=== PATIENT | female | born 1945 | race Caucasian/White ===

== ENCOUNTER 2016-07-19 10:32 | Emergency (ER) | payer OTHER, MEDICARE ==
[~2016-07-19] VITALS: Ht 157.5 cm; Wt 75.8 kg
[~2016-07-19 10:32] MED LIST: ANUSOL HC-HEMOR1 SUP RC; BACTRIM DS 8001 TAB PO; BYSTOLIC10 M1 PO; CARAFATE 1GM1000 MG PO; CIPRO500 MG PO; CRESTOR20 M2 PO; FLAG500 PO; KEFLEX500 MG PO; PERCOCET 325 MG1 TA2 PO; VICODIN5-300 PO
[2016-07-19] MEDS ORDERED: SIMVASTATIN20 M2 PO (11:25)
--- NOTE | 2016-07-19 12:17 | ED CARDIAC/CP/PALPITATIONS ---
History of Present Illness General Chief Complaint: Chest Pain Stated Complaint: ABD PAIN,SHOULDER PAIN,BACK PAIN Source: patient Exam Limitations: no limitations Vital Signs & Intake/Output Vital Signs & Intake/Output Vital Signs Date Time Temp Pulse Resp B/P Pulse O2 O2 Flow FiO2 Ox Delivery Rate 07/19 1556 98.2 110 20 169/82 95 Room Air 07/19 1320 96.6 108 20 149/73 94 Room Air 07/19 1127 96 Room Air 07/19 1039 98.6 118 18 174/96 97 Room Air Allergies Coded Allergies: NO KNOWN ALLERGIES (01/31/15) Triage Note: 70 Y/O FEMALE C/O 1 WEEK HISTORY OF PAIN TO ABDOMEN (RUQ), CHEST, UPPER BACK AND BETWEEN SHOULDER BLADES. STATES PAIN HAS BECOME CONSTANT IN NATURE. DENIES SOB. DENIES N/V/D. REPORTS FEELING "WARM". HX SINUS TACHYCARDIA; HR 115 IN TRIAGE TAKEN FOR EKG. Triage Nurses Notes Reviewed? yes HPI: This patient is a 70-year-old female with a past medical history including colon cancer, hyperlipidemia, and tachycardia of unknown etiology who presented to the emergency department today for evaluation of back pain. The patient reported that she has had pain, "between my scapulas," for approximately 6 or 7 days. She reported that it is worse with deep inspiration and sitting up straight. She reported that the pain gets up to 7 on a 10, is sore, and nonradiating. 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 The patient reported that since surgery for colon cancer she has had chemotherapy and serial CT scans of the abdomen and pelvis. She is due for one in the next month. Whenever they get the CT scans, they also include a CT scan of the entire spine. The patient denied any fevers, chills, difficulty breathing, chest pain, palpitations, abdominal pain, nausea, or vomiting. She reported that she does have chronic diarrhea since her surgery. Occasional blood in the stool due to hemorrhoids. She had a colonoscopy last November which was normal. The patient also reported that she was diagnosed with bronchitis and was on outpatient antibiotics. She reported that she had bronchitis for approximately 6 weeks and it resolved around July 07. (EMLI ROBBINS,SPENCER) Reconcile Medications Cyclobenzaprine HCl 5 MG TABLET 1 TAB PO BID PRN MUSCLE RELAXTION Naproxen (Naprosyn) 500 MG TABLET 1 TAB PO BID PRN pain and inflammation Nebivolol HCl (Bystolic) 10 MG TABLET 1 TAB PO DAILY HEART (Reported) Rosuvastatin Calcium (Crestor) 20 MG TABLET 1 TAB PO DAILY CHOLESTEROL ( Reported) Simvastatin (Simvastatin*) 20 MG TABLET 1 TAB PO QPM CHOLESTEROL (Reported) (OSBALDO MONROY,RIN Santos) Past History Travel History Traveled to [place] past 21 day No Medical History Any Pertinent Medical History? see below for history Neurological: NONE EENT: NONE Cardiovascular: hyperlipidemia, TACHYCARDIA Respiratory: NONE Gastrointestinal: COLON CANCER Hepatic: NONE Renal: NONE Musculoskeletal: NONE Psychiatric: NONE Endocrine: NONE Blood Disorders: NONE Cancer(s): NONE PULLER THROUGH/Reproductive: NONE Surgical History Surgical History: Psychosocial History What is your primary language Czech Tobacco Use: Quit >30 days ago Family History Hx Contributory? No (SPENCER STEIN PA-C) Review of Systems Review of Systems Constitutional: Reports: no symptoms. EENTM: Reports: no symptoms. Respiratory: Reports: see HPI. Cardiovascular: Reports: no symptoms. GI: Reports: no symptoms. Genitourinary: Reports: no symptoms. Musculoskeletal: Reports: see HPI. Skin: Reports: no symptoms. Neurological/Psychological: Reports: no symptoms. All Other Systems: Reviewed and Negative (SPENCER STEIN PA-C) Physical Exam Physical Exam Cardiovascular: normal peripheral pulses, TACHYCARDIC WITH A REGULAR RHYTHM AND NO MURMURS, RUBS, GALLOPS. nO CAROTID BRUITS OR jvd APPRECIATED Comments: Well-developed well-nourished person in no acute distress HEENT: Normal EENT exam, head normocephalic/atraumatic, moist mucous membranes PERRLA bilaterally Neck: Supple, no lymphadenopathy. Full range of motion and no midline tenderness Back: Normal inspection. Normal gait. No CVA tenderness. No midline tenderness. Mild thoracic paraspinal musculature tenderness on the left. No muscular spasm noted Respiratory: Chest nontender. No respiratory distress. Speaking in full sentences. Few rhonchi in bilateral lung apices with no wheezes or rales. No diminished breath sounds Abdomen: Soft, nontender and nondistended with no peritoneal signs or rebound or guarding Extremity: No edema, no calf tenderness to palpation, normal and equal pulses. Neuro: Alert oriented x3,cranial nerves II through XII grossly intact. Skin: No appreciable rash on exposed skin, skin is warm and dry. Psych: Mood and affect is normal Core Measures ACS in differential dx? Yes Severe Sepsis Present: No Septic Shock Present: No (EMIL ROBBINS,SPENCER) Progress Differential Diagnosis: AMI, aortic dissection, CHF/pulm edema, costochondritis, hyperthyroid, myocarditis, pancreatitis, pericarditis, pneumonia, PSVT, pulmonary embolism, PUD/GERD, PVCs/PACs, unstable angina Plan of Care: Orders Procedure Date/time Status Add-on Test (ER Only) 07/19 1209 Active CULTURE,URINE 07/19 1209 Active URINALYSIS 07/19 1209 Complete TROPONIN LEVEL 07/19 1209 Complete D-DIMER 07/19 1209 Complete COMPREHENSIVE METABOLIC PANEL 07/19 1209 Complete CBC WITHOUT DIFFERENTIAL 07/19 1209 Complete EKG 07/19 1033 Active Laboratory Tests 07/19/16 1220: Anion Gap 13, Estimated GFR > 60, BUN/Creatinine Ratio 17.1, Glucose 91, Calcium 9.6, Total Bilirubin 0.7, AST 34, ALT 47, Alkaline Phosphatase 80, Troponin I < 0.01, Total Protein 8.0, Albumin 4.7, Globulin 3.3, Albumin/Globulin Ratio 1.4, D-Dimer < 200, CBC w Diff NO MAN DIFF REQ, RBC 4.72, MCV 92.8, MCH 32.0 H, RDW 13.5, MPV 7.5, Gran % 57.5, Lymphocytes % 28.3, Monocytes % 5.5, Eosinophils % 7.6 H, Basophils % 1.1, Absolute Granulocytes 3.5, Absolute Lymphocytes 1.7, Absolute Monocytes 0.3, Absolute Eosinophils 0.5, Absolute Basophils 0.1, PUBS MCHC 34.5 07/19/16 1215: Carcinoembryonic Ag Pending 07/19/16 1130: Urine Color STRAW, Urine Clarity HAZY H, Urine pH 6.5, Ur Specific [place] <= 1.005, Urine Protein NEG, Urine Ketones NEG, Urine Nitrite NEG, Urine Bilirubin NEG, Urine Urobilinogen 0.2, Ur Leukocyte Esterase SMALL H, Ur Microscopic SEDIMENT EXAMINED, Urine RBC RARE, Urine WBC 5-10 H, Ur Epithelial Cells FEW, Urine Hemoglobin TRACE-INTACT, Urine Glucose NEG Microbiology 07/19 113 URINE ROUT: Urine Culture - RECD Diagnostic Imaging: Viewed by Me: Radiology Read, CT Scan. Discussed w/RAD: Radiology Read, CT Scan. Radiology Impression: PATIENT: ZACHARY SIM PRESENT AGE: 70 PATIENT ACCOUNT NO: [id number] : 43 LOCATION: [facility] ORDERING PHYSICIAN: SPENCER STEIN PA-C SERVICE DATE: 07/19/169454 EXAM TYPE: CAT - CT THOR SPINE W IV CONTRAST EXAMINATION: CT THORACIC SPINE WITH CONTRAST CLINICAL INFORMATION: Pain. Assess for metastases or degenerative changes. The patient has a history of colon carcinoma with lung nodules. COMPARISON: CT scan of the chest 01/29/2016. Chest x-ray 07/19/2016. TECHNIQUE: A noncontrast axial CT scan of the cervical spine was obtained. Coronal and sagittal reformatted images were generated at the acquisition workstation. 94 mL Optiray 320 intravenous contrast. DLP: 1048.96 mGy-cm FINDINGS: There is a mild dextroscoliosis with the apex at T6-T7. There are prominent left-sided osteophytes laterally at this level. There is a mild anterolisthesis of T8 on T9. There is partial fusion of the bodies of T7 and T8. There is a mild retrolisthesis of T12 on L1. There is multilevel narrowing of intervertebral disc height throughout the lumbar spine with degenerative endplate contour changes and vacuum discs. These findings were demonstrated on the prior study. Vertebral body heights are maintained and there are no compression fractures. The thyroid gland has heterogenous density with suggestion of some nodularity and is slightly prominent, demonstrated on prior imaging. There is a 1.1 cm nodule posterior to the right lobe of the thyroid gland (image 10/135) which may be parathyroid glands. There is a small hiatal hernia, similar compared to the prior study. The fat-containing hernia on the left is stable. There is a 0.8 cm right retrocrural lymph node (image 107/135) which has increased in size compared to the prior study. The study redemonstrates the calcified right adrenal mass which has a stable configuration. A nonobstructive calcification is noted toward the upper pole of the left kidney. There is a small hiatal hernia. There is a 2-vessel aortic arch, a normal variant. There is a stable 0.7 cm nodule in the right upper lobe (image 121/537). There is scarring at the lung apices. There is a 0.3 cm subpleural nodule in the right lower lobe posteromedially which is unchanged. There is atelectasis adjacent to a prominent osteophyte on the right in the right lower lobe medially. SPINAL LEVELS: There are multilevel posterior disc osteophyte complexes with uncovertebral osteophytes. There is no central stenosis or spinal cord compression. There are multilevel foraminal disc osteophyte complexes. There is mild multilevel facet arthropathy. IMPRESSION: 1. There are no acute fractures or subluxations. 2. There are multilevel degenerative changes throughout the thoracic spine with narrowing of intervertebral disc height, T7-T8 vertebral body fusion and anterolisthesis as described above. 3. There is no central stenosis. 4. There has been slight interval increase in the size of a right retrocrural lymph node. 5. There are multiple lung nodules which appear similar compared to prior imaging. 6. The thyroid gland has heterogenous density and is slightly prominent. There is also a nodule posterior to the right lobe of the thyroid gland. Recommend thyroid ultrasound. DICTATED BY: ONUR MOORE MD DATE/TIME DICTATED:07/19/161433 CITIZENSHIP INSTRUCTOR:IGLESIA DATE/TIME TRANSCRIBED:1433 CONFIDENTIAL, DO NOT COPY WITHOUT APPROPRIATE AUTHORIZATION. < Electronically signed in Other Vendor System> SIGNED BY: ONUR MOORE MD 1532 CXR Impression: PATIENT: ZACHARY SIM PRESENT AGE: 70 PATIENT ACCOUNT NO: [id number] : 43 LOCATION: [facility] ORDERING PHYSICIAN: SPENCER STEIN PA-C SERVICE DATE: 07/19/161210 EXAM TYPE: RAD - XRY-CHEST XRAY, PA AND LATERAL EXAMINATION: XR CHEST CLINICAL INFORMATION: Back pain. COMPARISON: CT chest 01/29/2016. TECHNIQUE: 2 views of the chest were obtained. FINDINGS: Both lungs are well-expanded and clear of acute process. Small pulmonary nodules seen on recent CT chest exam are not visualized on the chest x -ray. The heart size and pulmonary vascularity is normal. There is a sclerotic density overlying the right medial clavicle not seen on previous CT chest exam. IMPRESSION: No acute cardiopulmonary process seen. There is sclerotic density overlying the right medial clavicle new since the previous study. DICTATED BY: PILY NUNO MD DATE/TIME DICTATED:07/19/161232 CITIZENSHIP INSTRUCTOR:IGLESIA DATE/TIME TRANSCRIBED:07/19/161232 CONFIDENTIAL, DO NOT COPY WITHOUT APPROPRIATE AUTHORIZATION. <Electronically signed in Other Vendor System> SIGNED BY: PILY NUNO MD 07/19/16 1244 Initial ED EKG: normal intervals, nonspecific ST T wave chg, SINUS TACHYCARDIA, 107 BPM Comments: 07/19/2016 1:43:34 PM: Patient is currently resting in the stretcher. Updated her on all laboratory results. D-dimer not elevated. Troponin not elevated. No increase in white blood cell count. We will obtain a CT scan of the thoracic spine to rule out any metastasis or degenerative changes. (SPENCER STEIN PA-C) Departure Departure Disposition: HOME OR SELF CARE Condition: Stable Clinical Impression Primary Impression: Back pain Qualifiers: Back pain location: thoracic back pain Chronicity: unspecified Back pain laterality: midline Qualified Code: M54.6 - Pain in thoracic spine Referrals: CARLOS ADAIR MD (PCP/Family) Additional Instructions: Take naproxen as prescribed for pain and inflammation. Take Flexeril as prescribed for muscle relaxation. Avoid any heavy lifting or strenuous activity. Gentle stretching. Please call to follow-up with your primary care physician.. Return for any worsening symptoms or concerns. Departure Forms: Customer Survey General Discharge Information Prescriptions: Current Visit Scripts Naproxen (Naprosyn) 1 TAB PO BID PRN pain and inflammation #20 TAB Cyclobenzaprine HCl 1 TAB PO BID PRN MUSCLE RELAXTION #10 TAB (SPENCER STEIN PA-C) PA/WATER TREATMENT SPECIALIST Co-Sign Statement Statement: ED Attending supervision documentation- [X] I saw and evaluated the patient. I have also reviewed all the pertinent lab results and diagnostic results. I agree with the findings and the plan of care as documented in the PA's/WATER TREATMENT SPECIALIST's documentation. [X] I have reviewed the ED Record and agree with the PA's/WATER TREATMENT SPECIALIST's documentation. [] Additions or exceptions (if any) to the PAs/WATER TREATMENT SPECIALIST's note and plan are summarized below: [] (OSBALDO MONROY,RIN Santos) Departure Comments 07/21/2016 11:38:48 AM Patient had a question in regards to her chest x-ray reading which read a sclerotic lesion on her right clavicle. Patient was told to go over these results with her doctor for further evaluation and may require further evaluation with CAT scan and possibly PET scan. Patient reports that she has a history of colon cancer. Patient was not seen by myself. Patient walked into the emergency room with just a question about the lesion seen on the chest x- ray.i addreessed question. (DESTIN BRICE) Critical Care Note Critical Care Note Critical Care Time: non-applicable (EMIL ROBBINS,SPENCER)
--- NOTE | 2016-07-19 12:44 | RADIOLOGY REPORT ---
EXAMINATION: XR CHEST CLINICAL INFORMATION: Back pain. COMPARISON: CT chest 01/29/2016. TECHNIQUE: 2 views of the chest were obtained. FINDINGS: Both lungs are well-expanded and clear of acute process. Small pulmonary nodules seen on recent CT chest exam are not visualized on the chest x-ray. The heart size and pulmonary vascularity is normal. There is a sclerotic density overlying the right medial clavicle not seen on previous CT chest exam. IMPRESSION: No acute cardiopulmonary process seen. There is sclerotic density overlying the right medial clavicle new since the previous study.
[2016-07-19 12:46] LABS: ABSOLUTE BASOPHIL COUNT 0.1 /CUMM (0.0-0.2); ABSOLUTE EOSINOPHIL COUNT 0.5 /CUMM (0.0-0.7); ABSOLUTE GRANULOCYTE CT 3.5 /CUMM (1.4-6.5); ABSOLUTE LYMPH COUNT 1.7 /CUMM (1.2-3.4); ABSOLUTE MONOCYTE COUNT 0.3 /CUMM (0.10-0.60); BASOPHIL % 1.1 % (0.0-2.0); EOSINOPHIL % 7.6 % (0-5); GRANULOCYTE % 57.5 % (42.2-75.2); HEMATOCRIT 43.8 % (37-47); MEAN CORPUSCULAR HGB CONC 34.5 G/DL (33.0-37.0); MEAN CORPUSCULAR VOLUME 92.8 FL (81.0-99.0); MEAN PLATELET VOLUME 7.5 FL (7.4-10.4); PLATELET COUNT 288 /CUMM (130-400); RBC DISTRIBUTION WIDTH 13.5 % (11.5-14.5); RED BLOOD CELL CT 4.72 /CUMM (4.20-5.40); WHITE BLOOD CELL COUNT 6.2 /CUMM (4.8-10.8)
--- NOTE | 2016-07-19 15:32 | CT SCAN REPORT ---
EXAMINATION: CT THORACIC SPINE WITH CONTRAST CLINICAL INFORMATION: Pain. Assess for metastases or degenerative changes. The patient has a history of colon carcinoma with lung nodules. COMPARISON: CT scan of the chest 01/29/2016. Chest x-ray 07/19/2016. TECHNIQUE: A noncontrast axial CT scan of the cervical spine was obtained. Coronal and sagittal reformatted images were generated at the acquisition workstation. 94 mL Optiray 320 intravenous contrast. DLP: 1048.96 mGy-cm FINDINGS: There is a mild dextroscoliosis with the apex at T6-T7. There are prominent left-sided osteophytes laterally at this level. There is a mild anterolisthesis of T8 on T9. There is partial fusion of the bodies of T7 and T8. There is a mild retrolisthesis of T12 on L1. There is multilevel narrowing of intervertebral disc height throughout the lumbar spine with degenerative endplate contour changes and vacuum discs. These findings were demonstrated on the prior study. Vertebral body heights are maintained and there are no compression fractures. The thyroid gland has heterogenous density with suggestion of some nodularity and is slightly prominent, demonstrated on prior imaging. There is a 1.1 cm nodule posterior to the right lobe of the thyroid gland (image 10/135) which may be parathyroid glands. There is a small hiatal hernia, similar compared to the prior study. The fat-containing hernia on the left is stable. There is a 0.8 cm right retrocrural lymph node (image 107/135) which has increased in size compared to the prior study. The study redemonstrates the calcified right adrenal mass which has a stable configuration. A nonobstructive calcification is noted toward the upper pole of the left kidney. There is a small hiatal hernia. There is a 2-vessel aortic arch, a normal variant. There is a stable 0.7 cm nodule in the right upper lobe (image 121/537). There is scarring at the lung apices. There is a 0.3 cm subpleural nodule in the right lower lobe posteromedially which is unchanged. There is atelectasis adjacent to a prominent osteophyte on the right in the right lower lobe medially. SPINAL LEVELS: There are multilevel posterior disc osteophyte complexes with uncovertebral osteophytes. There is no central stenosis or spinal cord compression. There are multilevel foraminal disc osteophyte complexes. There is mild multilevel facet arthropathy. IMPRESSION: 1. There are no acute fractures or subluxations. 2. There are multilevel degenerative changes throughout the thoracic spine with narrowing of intervertebral disc height, T7-T8 vertebral body fusion and anterolisthesis as described above. 3. There is no central stenosis. 4. There has been slight interval increase in the size of a right retrocrural lymph node. 5. There are multiple lung nodules which appear similar compared to prior imaging. 6. The thyroid gland has heterogenous density and is slightly prominent. There is also a nodule posterior to the right lobe of the thyroid gland. Recommend thyroid ultrasound.
[2016-07-19] MEDS ORDERED: CYCLOBENZAPRINE5 M2 PO (15:44)
[2016-07-19] MEDS ORDERED: NAPROSYN500 M1 PO (15:44)
[2016-07-19 15:56] VITALS: BP 169/82
== END 2016-07-19 15:57 ==
LOC: ERH 10:32
PROVIDERS: Physician Assistant
DX: M54.6 Pain in thoracic spine (principal); R19.7 Diarrhea, unspecified; R00.0 Tachycardia, unspecified; R10.9 Unspecified abdominal pain; Z85.038 Personal history of other malignant neoplasm of large intestine
CPT/HCPCS: 81001; 87086; 93005; 93010; Q9965

== ENCOUNTER 2016-10-09 05:02 | Emergency (ER) | payer OTHER, MEDICARE ==
[~2016-10-09] VITALS: Ht 157.5 cm; Wt 90.7 kg
[~2016-10-09 05:02] MED LIST changes: +CYCLOBENZAPRINE5 M2 PO; +NAPROSYN500 M1 PO; +SIMVASTATIN20 M2 PO
--- NOTE | 2016-10-09 05:13 | ED DYSPNEA/ASTHMA COMPLAINT ---
History of Present Illness General Chief Complaint: Dyspnea (COPD, CHF, Other) Stated Complaint: DIFF BREATHING X2 WEEKS ON AND OFF Source: patient Exam Limitations: no limitations Vital Signs & Intake/Output Vital Signs & Intake/Output Vital Signs Date Time Temp Pulse Resp B/P B/P Pulse O2 O2 Flow FiO2 Mean Ox Delivery Rate 10/10 535 97 Room Air 10/10 535 96.8 110 18 150/88 98 Aerosol Mask 10/09 0433 98 Allergies Coded Allergies: No Known Allergies (10/09/16) Reconcile Medications Albuterol Sulfate (Ventolin Hfa) 90 MCG HFA.AER.AD 2 PUF INH Q4-6 PRN PRN WHEEZING Amoxicillin/Potassium Clav (Augmentin 875-125 Tablet) 875 MG-125 MG TABLET 1 TAB PO BID BRONCHITIS Cyclobenzaprine HCl 5 MG TABLET 1 TAB PO BID PRN MUSCLE RELAXTION Naproxen (Naprosyn) 500 MG TABLET 1 TAB PO BID PRN pain and inflammation Nebivolol HCl (Bystolic) 10 MG TABLET 1 TAB PO DAILY HEART (Reported) Prednisone 50 MG TABLET 1 TAB PO DAILY BRONCHITIS Rosuvastatin Calcium (Crestor) 20 MG TABLET 1 TAB PO DAILY CHOLESTEROL ( Reported) Simvastatin (Simvastatin*) 20 MG TABLET 1 TAB PO QPM CHOLESTEROL (Reported) Triage Nurses Notes Reviewed? yes Onset: Gradual Duration: week(s):, waxing and waning Timing: recent history Severity: mild, moderate Activities at Onset: none Prior Episodes/Possible Cause: occasional episodes Associated Symptoms: cough HPI: 71-year-old woman with a history of intestinal cancer, status post right hemicolectomy a few years ago, presents with more than 1 week history of cough. She notes that she had mild symptoms for approximately 1 week. Over the past 24 hours she noted increasing phlegm, cough, with occasional wheeze. She has no fever chills shortness of breath chest pain dizziness or syncopal type symptoms. She states that she sometimes gets these symptoms during allergy season. She is otherwise well and has no other concerns. Past History Travel History Traveled to [place] past 21 day No Medical History Any Pertinent Medical History? 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 No Review of Systems Review of Systems Constitutional: Reports: no symptoms. EENTM: Reports: no symptoms. Respiratory: Reports: no symptoms. Cardiovascular: Reports: no symptoms. GI: Reports: no symptoms. Genitourinary: Reports: no symptoms. Musculoskeletal: Reports: no symptoms. Skin: Reports: no symptoms. Neurological/Psychological: Reports: no symptoms. Hematologic/Endocrine: Reports: no symptoms. Immunologic/Allergic: Reports: no symptoms. All Other Systems: Reviewed and Negative Physical Exam Physical Exam General Appearance: well developed/nourished, mild distress Head: atraumatic, normal appearance Eyes: Bilateral: normal appearance. Ears, Nose, Throat: normal pharynx, normal ENT inspection Neck: normal inspection, supple Respiratory: normal breath sounds, minimal rhonchi Cardiovascular: regular rate/rhythm Gastrointestinal: normal bowel sounds, soft, non-tender Extremities: normal inspection Neurologic/Psych: no motor/sensory deficits, awake, alert, oriented x 3 Skin: intact, normal color, warm/dry Core Measures ACS in differential dx? No Severe Sepsis Present: No Septic Shock Present: No Progress Differential Diagnosis: asthma, bronchitis Plan of Care: Current Medications Sig/Sancho Start time Last Medication Dose Stop Time Status Admin Albuterol Sulfate 3 ML ONCE ONE 10/09 529 UNVr 10/09 (Proventil) 10/09 0531 0533 Amoxicillin/ 1,000 MG ONCE ONE 10/09 529 UNVr 10/09 Clavulanate Potassium 10/09 0531 0529 (Augmentin) Ipratropium [place] 2.5 ML ONCE ONE 10/09 529 UNVr 10/09 (Atrovent) 10/09 0531 0532 Prednisone 60 MG ONCE ONE 10/09 529 UNVr 10/09 10/09 0531 0529 Diagnostic Imaging: Viewed by Me: CT Scan. Discussed w/RAD: CT Scan. Radiology Impression: ct chest/abd/pelvis - interstitial lung disease, no acute disease, full report below (10/05/16) Initial ED EKG: none Comments: PATIENT: ZACHARY SIM PRESENT AGE: 71 PATIENT ACCOUNT NO: [id number] : 43 LOCATION: [facility] ORDERING PHYSICIAN: KIM BEAR MD SERVICE DATE: 08/05/16- EXAM TYPE: CAT - CT ABD & PELVIS W ORAL & IV CO; CT CHEST W IV CONTRAST EXAMINATION: CT CHEST, ABDOMEN AND PELVIS WITH CONTRAST CLINICAL INFORMATION: Colon cancer. Lung nodules. COMPARISON: CT scan of the chest, abdomen and pelvis dated 01/29/2016. CT scan of the abdomen and pelvis dated 10/16/2015 and 01/31/2015. CT scan of the chest dated 03/21/2015 and 08/02/2009. TECHNIQUE: Multidetector CT helical images of the chest, abdomen and pelvis were performed following the administration of oral contrast and 95 mL of intravenous Optiray 320. The data set was reformatted in the coronal and sagittal planes and reviewed on an independent workstation. DLP: 679.85 mGy-cm. FINDINGS: CHEST: LUNGS: Again seen are multiple bilateral variably sized solid noncalcified pulmonary nodules, all of which are unchanged dating back to 08/02/2009. The largest of these nodules is seen in the left lower lobe (series 4, image 295), measuring 0.8 x 0.6 cm. The left upper lobe 0.3 cm nodule and right middle lobe 0.5 cm nodule described on prior CT scan of the chest from 01/29/2016 and is new from prior exams are, in fact, not changed when compared to older studies dating back to 08/02/2009. Linear platelike atelectasis is seen in the right lobe. Patchy groundglass opacity along the right lower paraspinal lung is seen, consistent with chronic atelectasis. There are patchy areas of subpleural reticulation and groundglass opacities seen in the lungs bilaterally in nondependent portions, primarily involving the mid and lower lung zones, similar to prior studies, raising the suspicion of subtle underlying interstitial lung disease. There is also vague area of groundglass opacities seen in the right lung apex (series 4, image 94) appearing less distinct than on the 08/02/2009 CT scan. There is a calcified granuloma along the lateral periphery of the left upper lobe, unchanged since 2009. No effusion or pneumothorax is seen. Central airways are patent. LYMPHOVASCULAR STRUCTURES: Aortic and heart size are normal. No pericardial effusion is seen. Conjoint origin of the right brachiocephalic and the left common carotid arteries is seen. No significant mediastinal, hilar or axillary adenopathy is present. THYROID GLAND: Enlargement of the right lobe of the thyroid gland is seen. Thyroid parenchyma appears nodular with a dominant ill-defined 1.3 cm diameter nodule seen in the inferior thyroid isthmus, similar to prior study. BONES: Mild degenerative changes seen in the shoulder joints and moderate vertebral spondylosis is seen throughout the thoracic spine. Partial fusion of the T8-T9 vertebral bodies is seen. No suspicious focal finding. ABDOMEN AND PELVIS: LIVER, GALLBLADDER, BILIARY TREE: Liver normal size and attenuation. There is a stable 1.0 x 0.9 cm low-attenuation mass in segment 5/6 of the liver (series 2, image 58), unchanged dating back to 2010, consistent with a benign finding. No new or enlarging focal cystic or solid mass or intra-or extrahepatic ductal dilatation. Hepatic and portal veins patent. Several small calcified gallstones are seen within the gallbladder, which is otherwise unremarkable. PANCREAS: Normal. No ductal dilatation, mass, or surrounding stranding. SPLEEN: Normal size and appearance. There is a tiny accessory splenule along the anterior inferior margin of the spleen. Splenic vein patent. ADRENAL GLANDS AND KIDNEYS: Left adrenal gland normal. Densely calcified mass in the right adrenal gland is stable dating back to 2010. Kidneys bilaterally symmetric in size and function. No focal mass, hydronephrosis, or perinephric stranding. There are 2 nonobstructing calcifications in the upper pole of the left kidney, measuring up to 0.5 cm in size, similar to prior studies. An exophytic 0.7 cm low-attenuation mass, consistent with a cyst is seen in the upper pole of the left kidney, unchanged. URETERS AND BLADDER: Ureters decompressed and within normal limits. Bladder partially distended and within normal limits. PELVIC VISCERA: Unremarkable. BOWEL LOOPS: There is a small hiatal hernia. Small bowel loops decompressed and unremarkable. The patient is status post right hemicolectomy. The ileocolonic anastomosis in the right upper quadrant appears unremarkable. ABDOMINAL WALL: There is a small fat-containing umbilical hernia. LYMPHOVASCULAR STRUCTURES: Abdominal aorta normal in caliber. No periaortic collections. No abdominal or pelvic adenopathy or free fluid collection. BONES: Mild multilevel degenerative changes as seen throughout the spine. Grade 1 anterolisthesis of L5 on S1 is noted. IMPRESSION: 1. Status post right hemicolectomy with no evidence of locally recurrent mass or metastatic disease to the chest, abdomen and pelvis. 2. No significant interval change is seen in the multiple bilateral variably sized pulmonary nodules dating back to 2009, consistent with a benign etiology. 3. There is suspicion of subtle underlying interstitial lung disease, similar to prior studies. Multifocal other benign lung findings are as described above. 4. Enlarged nodular thyroid gland. Findings are similar to the previous exams. 5. Stable benign right lobe of liver mass, small upper pole left renal cyst, calcified benign right adrenal mass, nonobstructing left renal calcifications, small hiatal hernia and small fat-containing umbilical hernia. 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 <Electronically signed in Other Vendor System> SIGNED BY: RIVER ALMONTE MD 1921 Departure Departure Disposition: HOME OR SELF CARE Condition: Stable Clinical Impression Primary Impression: Bronchitis Referrals: CARLOS ADAIR MD (PCP/Family) Departure Forms: Customer Survey General Discharge Information Prescriptions: Current Visit Scripts Amoxicillin/Potassium Clav (Augmentin 875-125 Tablet) 1 TAB PO BID #14 TAB Prednisone 1 TAB PO DAILY #4 TAB Albuterol Sulfate (Ventolin Hfa) 2 PUF INH Q4-6 PRN PRN WHEEZING #1 INHAL Ref 1 Comments 10/09/16, 5:52am... pt feels better after duo neb... pt had ct scan 4 days ago which showed chronic interstitial type lung disease. No other acute process. Discussed at length. Pt prefers not to have labs or imaging and prefers to go to work this morning. Sent rx for prednisone/augmentin/albuterol [facility]. Advised her to return if symptoms worsen. Critical Care Note Critical Care Note Critical Care Time: non-applicable
[2016-10-09] MEDS ORDERED: AUGMENTIN 875-1 EACH PO (05:25)
[2016-10-09] MEDS ORDERED: VENTOLIN HFA18 GM INH (05:25)
[2016-10-09] MEDS ORDERED: PREDNISONE50 M1 PO (05:25)
[2016-10-09 05:36] VITALS: BP 150/88
== END 2016-10-09 06:04 ==
LOC: ERH 05:02
DX: J40 Bronchitis, not specified as acute or chronic (principal)
CPT/HCPCS: 1263; 1395; J3490

== ENCOUNTER 2017-09-23 05:08 | Emergency (ER) | payer OTHER, MEDICARE ==
[~2017-09-23] VITALS: Ht 154.9 cm; Wt 76.2 kg
[~2017-09-23 05:08] MED LIST changes: +ASPIRIN EC81 M1 PO; +AUGMENTIN 875-1 EACH PO; +GLUCOSAMINE1000 MG PO; +IRON325 M3 PO; +LEVAQUIN500 M1 PO; +MULTIVITAMINS1 EAC9 PO; +PREDNISOLO15 MG/5 M4 PO; +PREDNISONE50 M1 PO; +VENTOLIN HFA18 GM INH; +VITAMIN B-121000 MC3 PO; +VITAMIN C500 M8 PO; +VITAMIN E100 UNI2 PO
[2017-09-23 05:16] VITALS: BP 158/95
--- NOTE | 2017-09-23 05:16 | ED DYSPNEA/ASTHMA COMPLAINT ---
History of Present Illness General Chief Complaint: General Adult Stated Complaint: "I DON'T FEEL WELL" Source: patient Exam Limitations: no limitations Vital Signs & Intake/Output Vital Signs & Intake/Output Vital Signs Date Time Temp Pulse Resp B/P B/P Pulse O2 O2 Flow FiO2 Mean Ox Delivery Rate 09/23 0516 98.0 114 20 158/95 94 Room Air Allergies Coded Allergies: No Known Allergies (05/08/17) Reconcile Medications Ascorbic Acid (Vitamin C) (Unknown Strength) TABLET (Unknown Dose) PO DAILY SUPPLEMENT (Reported) Aspirin (Ecotrin*) 81 MG TABLET.DR 1 TAB PO DAILY HEARFT/BLOOD (Reported) Cyanocobalamin (Vitamin B-12) (Unknown Strength) TABLET (Unknown Dose) PO DAILY SUPPLEMENT (Reported) Ferrous Sulfate (IRON) (Unknown Strength) TABLET (Unknown Dose) PO DAILY SUPPLEMENT (Reported) Glucosamine Sulfate 2KCL (Glucosamine) (Unknown Strength) TABLET (Unknown Dose ) PO DAILY SUPPLEMENT (Reported) Levofloxacin (Levaquin) 500 MG TABLET 1 TAB PO DAILY BRONCHITIS Multiple Vitamin (Multivitamins) 1 EACH TABLET 1 TAB PO DAILY SUPPLEMENT ( Reported) Nebivolol HCl (Bystolic) 10 MG TABLET 1 TAB PO DAILY SINUS TACHYCARDIA ( Reported) Simvastatin (Simvastatin*) 20 MG TABLET 1 TAB PO QPM CHOLESTEROL (Reported) Vitamin E Mixed (Vitamin E) (Unknown Strength) TABLET (Unknown Dose) PO DAILY SUPPLEMENT (Reported) Triage Nurses Notes Reviewed? yes Onset: Gradual Duration: day(s): Timing: recent history Severity: mild, moderate Activities at Onset: none Modifying Factors: Improves With: rest. HPI: 72 yo woman h/o colo-rectal cancer, presents stating, "I need a ct scan." She shares that she was at [facility] because she thought she had gallstones. She was cleared from biliary disease, but when she reviewed copies of the ct scan, she noted that the result stated, "interval development of multiple soft tissues masses concerning for peritoneal metastatic disease." She states, "I spoke to my oncologist who said I needed at ct scan with iv contrast." She notes that she is "very anxious," but is feeling no pain. She has no weight loss, night sweats. She had been constipated after she received morphine at [facility], but is otherwise well. Past History Travel History Traveled to [place] past 21 day No Medical History Any Pertinent Medical History? 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 No Review of Systems Review of Systems Constitutional: Reports: no symptoms. EENTM: Reports: no symptoms. Respiratory: Reports: no symptoms. Cardiovascular: Reports: no symptoms. GI: Reports: no symptoms. Genitourinary: Reports: no symptoms. Musculoskeletal: Reports: no symptoms. Skin: Reports: no symptoms. Neurological/Psychological: Reports: no symptoms. Hematologic/Endocrine: Reports: no symptoms. Immunologic/Allergic: Reports: no symptoms. All Other Systems: Reviewed and Negative Physical Exam Physical Exam General Appearance: well developed/nourished, anxious, mild distress Head: atraumatic, normal appearance Eyes: Bilateral: normal appearance. Ears, Nose, Throat: normal pharynx, normal ENT inspection Neck: normal inspection, supple, full range of motion Respiratory: normal breath sounds, chest non-tender, no respiratory distress, quiet respiration, lungs clear Cardiovascular: regular rate/rhythm Gastrointestinal: normal bowel sounds, soft, non-tender, no organomegaly Extremities: normal inspection, normal capillary refill, normal range of motion, no edema Neurologic/Psych: no motor/sensory deficits, awake, alert, oriented x 3 Skin: intact, normal color, warm/dry Core Measures ACS in differential dx? No CVA/TIA Diagnosis No Sepsis Present: No Sepsis Focused Exam Completed? No Progress Differential Diagnosis: mets vs other. Plan of Care: Orders Procedure Date/time Status LIPASE 09/23 529 Complete HEPATIC FUNCTION PANEL 09/23 529 Complete CBC WITHOUT DIFFERENTIAL 09/23 529 Complete BASIC METABOLIC PANEL 09/23 529 Complete AMYLASE 09/23 529 Complete Laboratory Tests 09/23/17 0540: Anion Gap 12, Estimated GFR > 60, BUN/Creatinine Ratio 20.0, Glucose 110 H, Calcium 9.7, Total Bilirubin 0.8, Direct Bilirubin 0.5 H, AST 27, ALT 33, Alkaline Phosphatase 74, Total Protein 8.0, Albumin 4.9, Amylase 86, Lipase 160, CBC w Diff NO MAN DIFF REQ, RBC 4.89, MCV 93.0, MCH 31.1 H, MCHC 33.5, RDW 13.3 , MPV 7.4, Gran % 61.6, Lymphocytes % 29.5, Monocytes % 5.3, Eosinophils % 3.0, Basophils % 0.6, Absolute Granulocytes 4.5, Absolute Lymphocytes 2.1, Absolute Monocytes 0.4, Absolute Eosinophils 0.2, Absolute Basophils 0 Diagnostic Imaging: Viewed by Me: CT Scan. Discussed w/RAD: CT Scan. Radiology Impression: PATIENT: ZACHARY SIM PRESENT AGE: 72 PATIENT ACCOUNT NO: [id number] : 43 LOCATION: [facility] ORDERING PHYSICIAN: Saroj Tabor MD SERVICE DATE: 09/23/17 EXAM TYPE: CAT - CT ABD & PELVIS W IV CONTRAST; CT CHEST W IV CONTRAST EXAMINATION: CONTRAST-ENHANCED CT OF THE CHEST; CONTRAST-ENHANCED CT OF THE ABDOMEN AND PELVIS INDICATION: Multiple priors, most recent 02/14/2017 COMPARISON: Multiple soft tissue peritoneal masses on noncontrast scan, question metastases TECHNIQUE : 95 mL Optiray 320 IV contrast was utilized. Multidetector helical imaging was performed through the chest, abdomen, and pelvis. Coronal and sagittal reformatted images were created at the technologist workstation. DLP: 960.12 mGy -cm FINDINGS: Chest: No regions of dense consolidation bilaterally. Mild atelectasis is suspected towards the lung bases. There are multiple bilateral pulmonary nodules as follows: Calcified left upper lobe nodule on image 207/94, unchanged from 02/14/2017 Left lower lobe 4 mm nodule on image 354/94, unchanged Left lower lobe nodule measuring 9 x 5 mm on image 343/94, unchanged Several tiny subpleural left lower lobe nodules appear without significant change from prior Right lower lobe juxta fissural 4 pulmonary nodule on image 296/94, unchanged No new suspicious nodules identified. Redemonstrated heterogeneous thyroid gland suspicious for underlying nodules which are not well delineated on CT. There are subcentimeter mediastinal lymph nodes within the range of normal variation. Cardiac size is within normal limits; no pericardial effusion. Calcification is present at the aortic arch. No axillary lymphadenopathy is present. Abdomen/Pelvis: The liver is homogeneous in attenuation without intrahepatic biliary ductal dilatation. There is a redemonstrated 1.1 cm hypoattenuating lesion in the right hepatic lobe. Gallstones are noted. The spleen and pancreas appear unremarkable. There is a redemonstrated partially calcified right adrenal mass. The left adrenal gland is unremarkable. Bilateral nephrograms are symmetric. There is a distal left ureteral calculus measuring 7 mm without hydronephrosis. There are subcentimeter hypoattenuating lesions in the left kidney, suspicious for small cysts. No right-sided hydronephrosis or obstructing calculus. The urinary bladder is minimally distended and grossly unremarkable. The uterus and adnexa are unremarkable. Patient appears status post right hemicolectomy with ileocolonic anastomosis in the right abdomen. No evidence of bowel obstruction. No suspicious bowel wall thickening is seen. No free fluid or free air is present. There are multiple nodular soft tissue masses in the abdominal mesentery, some of which and irregular margins such as seen on image 77/123 measuring approximately 2.1 x 3.0 cm and image 81/123 measuring approximately 2.9 x 2.4 cm. There are numerous additional scattered smaller nodular densities in the mesentery and omentum. A small calcification is associated with the soft tissue density in the left lower quadrant on image 87/ 123. These findings are new compared to prior abdominal CT. Scattered atherosclerotic calcifications are present. Degenerative changes are noted in the spine. IMPRESSION: 1. Multiple scattered nodular soft tissue masses in the abdominal mesentery and omentum, new from 02/14/2017. These may reflect peritoneal metastases; additional considerations would include peritoneal lymphomatosis or abdominal mesothelioma. 2. Distal left ureteral calculus measuring 7 mm without hydronephrosis. 3. Redemonstration of several bilateral lung nodules which do not appear significantly changed from prior. 4. Heterogeneous nodular thyroid gland. If not already performed, this may be further assessed with ultrasound. 5. Cholelithiasis. 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 <Electronically signed in Other Vendor System> SIGNED BY: Jeffry Mcgowan MD 09/23/17 0652 Initial ED EKG: none Departure Departure Disposition: HOME OR SELF CARE Condition: Stable Clinical Impression Primary Impression: Mesenteric mass Referrals: Ammon Gottlieb MD (PCP/Family) Departure Forms: Customer Survey General Discharge Information Comments 09/23/17, 7:12am... discussed results of ct scan at length with patient... she has benign labs and a benign ct scan... she expressed understanding and will follow up with her oncologist. Critical Care Note Critical Care Note Critical Care Time: non-applicable
[2017-09-23 05:51] LABS: ABSOLUTE BASOPHIL COUNT 0 /CUMM (0.0-0.2); ABSOLUTE EOSINOPHIL COUNT 0.2 /CUMM (0.0-0.7); ABSOLUTE GRANULOCYTE CT 4.5 /CUMM (1.4-6.5); ABSOLUTE LYMPH COUNT 2.1 /CUMM (1.2-3.4); ABSOLUTE MONOCYTE COUNT 0.4 /CUMM (0.10-0.60); BASOPHIL % 0.6 % (0.0-2.0); GRANULOCYTE % 61.6 % (42.2-75.2); HEMATOCRIT 45.5 % (37-47); MEAN CORPUSCULAR HGB 31.1 PG (27.0-31.0); MEAN CORPUSCULAR HGB CONC 33.5 G/DL (33.0-37.0); MEAN PLATELET VOLUME 7.4 FL (7.4-10.4); PLATELET COUNT 372 /CUMM (130-400); RBC DISTRIBUTION WIDTH 13.3 % (11.5-14.5); RED BLOOD CELL CT 4.89 /CUMM (4.20-5.40); WHITE BLOOD CELL COUNT 7.3 /CUMM (4.8-10.8)
--- NOTE | 2017-09-23 06:52 | CT SCAN REPORT ---
EXAMINATION: CONTRAST-ENHANCED CT OF THE CHEST; CONTRAST-ENHANCED CT OF THE ABDOMEN AND PELVIS INDICATION: Multiple priors, most recent 02/14/2017 COMPARISON: Multiple soft tissue peritoneal masses on noncontrast scan, question metastases TECHNIQUE: 95 mL Optiray 320 IV contrast was utilized. Multidetector helical imaging was performed through the chest, abdomen, and pelvis. Coronal and sagittal reformatted images were created at the technologist workstation. DLP: 960.12 mGy-cm FINDINGS: Chest: No regions of dense consolidation bilaterally. Mild atelectasis is suspected towards the lung bases. There are multiple bilateral pulmonary nodules as follows: Calcified left upper lobe nodule on image 207/94, unchanged from 02/14/2017 Left lower lobe 4 mm nodule on image 354/94, unchanged Left lower lobe nodule measuring 9 x 5 mm on image 343/94, unchanged Several tiny subpleural left lower lobe nodules appear without significant change from prior Right lower lobe juxta fissural 4 pulmonary nodule on image 296/94, unchanged No new suspicious nodules identified. Redemonstrated heterogeneous thyroid gland suspicious for underlying nodules which are not well delineated on CT. There are subcentimeter mediastinal lymph nodes within the range of normal variation. Cardiac size is within normal limits; no pericardial effusion. Calcification is present at the aortic arch. No axillary lymphadenopathy is present. Abdomen/Pelvis: The liver is homogeneous in attenuation without intrahepatic biliary ductal dilatation. There is a redemonstrated 1.1 cm hypoattenuating lesion in the right hepatic lobe. Gallstones are noted. The spleen and pancreas appear unremarkable. There is a redemonstrated partially calcified right adrenal mass. The left adrenal gland is unremarkable. Bilateral nephrograms are symmetric. There is a distal left ureteral calculus measuring 7 mm without hydronephrosis. There are subcentimeter hypoattenuating lesions in the left kidney, suspicious for small cysts. No right-sided hydronephrosis or obstructing calculus. The urinary bladder is minimally distended and grossly unremarkable. The uterus and adnexa are unremarkable. Patient appears status post right hemicolectomy with ileocolonic anastomosis in the right abdomen. No evidence of bowel obstruction. No suspicious bowel wall thickening is seen. No free fluid or free air is present. There are multiple nodular soft tissue masses in the abdominal mesentery, some of which and irregular margins such as seen on image 77/123 measuring approximately 2.1 x 3.0 cm and image 81/123 measuring approximately 2.9 x 2.4 cm. There are numerous additional scattered smaller nodular densities in the mesentery and omentum. A small calcification is associated with the soft tissue density in the left lower quadrant on image 87/123. These findings are new compared to prior abdominal CT. Scattered atherosclerotic calcifications are present. Degenerative changes are noted in the spine. IMPRESSION: 1. Multiple scattered nodular soft tissue masses in the abdominal mesentery and omentum, new from 02/14/2017. These may reflect peritoneal metastases; additional considerations would include peritoneal lymphomatosis or abdominal mesothelioma. 2. Distal left ureteral calculus measuring 7 mm without hydronephrosis. 3. Redemonstration of several bilateral lung nodules which do not appear significantly changed from prior. 4. Heterogeneous nodular thyroid gland. If not already performed, this may be further assessed with ultrasound. 5. Cholelithiasis.
== END 2017-09-23 07:20 ==
LOC: ERH 05:08
PROVIDERS: Pediatrics
DX: R19.09 Other intra-abdominal and pelvic swelling, mass and lump (principal); R00.0 Tachycardia, unspecified
CPT/HCPCS: 74177